=== PATIENT | male | born 1955 | race Caucasian/White ===

== ENCOUNTER 2018-04-11 09:17 | Emergency (ER) | payer BC, OTHER ==
[~2018-04-11] VITALS: Ht 175.3 cm; Wt 136.1 kg
[2018-04-11 09:42] LABS: ABSOLUTE NEUTROPHILS 4.3 thou/uL (1.4-8.2); BASOPHILS 0.5 % (0.0-2.0); EOSINOPHILS 1.1 % (0.0-3.0); HEMATOCRIT 41.3 % (42.0-52.0); HEMOGLOBIN 14.1 gm/dL (14.0-18.0); LYMPHOCYTES 24.5 % (24.0-44.0); MCH 31.7 pg (26.0-34.0); MCHC 34.1 g/dL (28.0-37.0); MCV 92.8 fL (80.0-100.0); MONOCYTES 8.7 % (1.0-8.0); PLATELET COUNT 230 thou/uL (150-400); POLYS 65.2 % (36.0-66.0); RBC 4.45 mil/uL (4.50-6.00); RDW 13.3 % (10.5-14.5); WBC 6.6 thou/uL (4.0-11.0)
[2018-04-11 09:49] LABS: ANION GAP 7 mmol/L (7-16); BUN 15 mg/dL (7-18); CALCIUM 9.1 mg/dL (8.5-10.1); CHLORIDE 103 mmol/L (98-107); CO2 30 mmol/L (21-32); GLUCOSE 105 mg/dL (74-106); SODIUM 140 mmol/L (136-145)
[2018-04-11 09:58] LABS: ALBUMIN 3.7 g/dL (3.4-5.0); SGOT 23 U/L (15-37); SGPT 24 U/L (30-65); TOTAL BILIRUBIN 0.5 mg/dL (<0.1-1.0); TOTAL PROTEIN 7.6 g/dL (6.4-8.2); TROPONIN-I <0.06 ng/mL (<0.06)
[2018-04-11] MEDS ORDERED: PREDNISONE 20 M20 MG PO (11:29)
[2018-04-11] MEDS ORDERED: ANORO ELLIPTA1 EACH IH (11:37)
[2018-04-11] MEDS ORDERED: DALIRESP250 MCG PO (11:38)
[2018-04-11] MEDS ORDERED: TOPROL XL100 MG PO (11:38)
[2018-04-11] MEDS ORDERED: ALBUTEROL2.5 MG/31 INH (11:38)
[2018-04-11] MEDS ORDERED: BUDESONIDE0.25 MG/2 IH (11:39)
[2018-04-11 11:50] VITALS: BP 174/113
--- NOTE | 2018-04-11 13:59 | EKG ---
[address] [address] ELECTROCARDIOGRAM REPORT Name: YINA UMANZOR Room #: DEP Honey#: [id number] Admission: 04/11/18 Attend Phys: Discharge: 04/11/18 Date of : 57 Report #: [id number] THIS REPORT FOR: //name// [facility] ED Test Date: 2018-04-11 Test Time: 09:34:57 Pat Name: YINA UMANZOR Department: Room: Gender: M Customer Resource Specialist: : [id number] Requested By: Charleen Torrez Order Number: [id number] MD: Jose Ragland Measurements Intervals [place] Rate: 65 P: 57 [place]: 185 QRS: 39 QRSD: 114 T: 38 QT: 445 QTc: 463 Interpretive Statements Sinus rhythm Borderline intraventricular conduction delay Minimal ST depression, inferior leads No previous ECG available for comparison Electronically Signed On 04-11-2018 13:59:33 [employer] by Jose Ragland [email or web address] <ELECTRONICALLY SIGNED> By: Jose Ragland MD 04/11/18 1359 [id number] 0934 Jose Ragland MD /[email or web address]
== END 2018-04-11 11:52 | disposition home or self-care (01) ==
LOC: ER 09:17
PROVIDERS: Physician Assistant
DX: J44.1 Chronic obstructive pulmonary disease with (acute) exacerbation (principal); Z87.891 Personal history of nicotine dependence; Z91.030 Bee allergy status; Z88.1 Allergy status to other antibiotic agents; Z91.041 Radiographic dye allergy status; Z88.8 Allergy status to other drugs, medicaments and biological substances